=== PATIENT | female | born 1980 | race Caucasian/White ===

== ENCOUNTER 2017-04-08 16:34 | Inpatient (IN) | payer OTHER ==
[~2017-04-08] VITALS: Ht 170.1 cm; Wt 59.2 kg
--- NOTE | 2017-04-08 17:45 | NUR ---
36 year old FEMALE admitted to room # 501 for stabilization. 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 Compliant with admission procedure. Patient complains of stomach cramps, diaphoresis, chills, and nausea. See assessment forms for additional information about patient status.
[2017-04-08 18:02] VITALS: BP 148/98
[2017-04-08 18:32] LABS: BASO % 0.2 % (0.0-1.0); EOS # 0.1 10*3/uL (0.0-0.4); EOS % 1.2 % (1.0-4.0); HEMATOCRIT 39.7 % (37.0-47.0); HEMOGLOBIN 13.3 g/dl (12.0-16.0); LYMPH # 3.1 10*3/uL (1.3-4.4); LYMPH % 35.9 % (27.0-41.0); MEAN CORPUSCULAR HGB 29.5 pg (27.0-31.0); MEAN CORPUSCULAR HGB CONC 33.5 g/dl (33.0-37.0); MONO # 0.7 10*3/uL (0.1-1.0); MONO % 7.6 % (3.0-9.0); NEUT # 4.7 10*3/uL (2.3-7.9); NEUT % 54.9 % (47.0-73.0); PLATELET COUNT AUTOMATED 198 10*3/uL (130-400); RED BLOOD COUNT 4.51 10*6/uL (4.10-5.10); RED CELL DISTRI WIDTH 13.2 % (0-14.5); WHITE BLOOD COUNT 8.6 10*3/uL (4.8-10.8)
[2017-04-08] MEDS ORDERED: LEXAPRO20 MG PO (18:42)
[2017-04-08] MEDS ORDERED: XANAX0.25 MG PO (18:43)
[2017-04-08] MEDS ORDERED: WELLBUTRIN XL150 MG PO (18:43)
[2017-04-08 18:46] LABS: ALBUMIN 3.6 gm/dl (3.1-4.5); ALKALINE PHOSPHATASE 65 U/L (45-117); BUN 9 mg/dl (7-24); CHLORIDE 103 mmol/L (98-107); CREATININE 1.05 mg/dL (0.55-1.02); POTASSIUM 3.5 mmol/L (3.5-5.1); SGOT/AST 23 IU/L (3-35); SGPT/ALT 41 U/L (12-78); SODIUM 139 mmol/L (136-145); TOTAL PROTEIN 7.7 gm/dL (6.4-8.2)
[2017-04-08 18:47] LABS: ETHYL ALCOHOL < 3.0 mg/dl (<3)
[2017-04-08 19:02] LABS: BILIRUBIN NEGATIVE (NEGATIVE); BLOOD NEGATIVE (NEGATIVE); CLARITY CLEAR (CLEAR); COLOR YELLOW (YELLOW); GLUCOSE NEGATIVE (NEGATIVE); KETONE NEGATIVE (NEGATIVE); LEUKO ESTERASE 1+ (NEGATIVE); NITRITE NEGATIVE (NEGATIVE); SPECIFIC GRAVITY <= 1.005 (1.005-1.030); UROBILINOGEN 0.2 E.U./dl (0.2-1.0)
--- NOTE | 2017-04-08 19:07 | NUR ---
PT MEDICATED WITH ROBAXIN AND VISTARIL PER PRN ORDER FOR ACHES & ANXIETY. WILL MONITOR
[2017-04-08 19:14] LABS: URINE AMPHETAMINES < 1000 (1000ng/ml); URINE BARBITURATES < 200 (200ng/ml); URINE BENZODIAZEPINES > 200 (200ng/ml); URINE CANNABINOIDS (THC) < 50 (50ng/ml); URINE COCAINE > 300 (300ng/ml); URINE METHADONE < 300 (300ng/ml); URINE OPIATES > 300 (300ng/ml)
[2017-04-08 19:16] LABS: URINE PHENCYCLIDINE < 25 (25ng/ml)
[2017-04-08 19:37] LABS: BACTERIA TRACE
[2017-04-08 20:00] VITALS: BP 148/89
--- NOTE | 2017-04-08 20:00 | NUR ---
NO URINE/SERUM DRUG ORDERED OR OBTAINED ON PT. HX OF HYSTERECTOMY. MEDS GIVEN BY PREVIOUS SHIFT
--- NOTE | 2017-04-08 21:08 | NUR ---
Patient displaying withdrawal symptoms, including: irritability, anxiousness, restlessness and agitation. PRN medications provided, SEE EMAR. Will continue to monitor medication effectiveness.
--- NOTE | 2017-04-08 23:00 | NUR ---
Patient resting. Responding to scheduled medications with fewer complaints of pain and anxiety.
[2017-04-09] VITALS: BP 100/59; BP 110/62
--- NOTE | 2017-04-09 00:48 | NUR ---
Patient displaying withdrawal symptoms, including: irritability, anxiousness, restlessness and agitation. PRN medications provided, SEE EMAR. Will continue to monitor medication effectiveness.
--- NOTE | 2017-04-09 03:00 | NUR ---
Patient resting. Responding to scheduled medications with fewer complaints of pain and anxiety.
[2017-04-09 04:00] VITALS: BP 108/64
--- NOTE | 2017-04-09 04:50 | NUR ---
Patient displaying withdrawal SIGNS/symptoms, including: irritability, anxiousness, restlessness, agitation, AND CRAVINGS. Scheduled medications provided, SEE EMAR. Will continue to monitor medication effectiveness.
--- NOTE | 2017-04-09 06:00 | NUR ---
Patient resting. Responding to scheduled medications with fewer complaints of pain and anxiety.
[2017-04-09 08:00] VITALS: BP 109/70; BP 118/70
--- NOTE | 2017-04-09 09:11 | NUR ---
PATIENT MEDICATED WITH VISTARIL & ROBAXIN AT THIS TIME FOR COMPLAINTS OF AGITATION & MUSCLE ACHES. WILL MONITOR FOR EFEFCTIVENESS.
--- NOTE | 2017-04-09 10:15 | NUR ---
PATIENT STATES THAT VISTARIL & ROBAXIN WERE EFEFCTIVE AT THIS TIME.
--- NOTE | 2017-04-09 10:52 | NUR ---
PATIENT MEDICATED WITH BENTYL AND ZOFRAN PER PRN ORDER FOR COMPLAINTS OF NAUSEA AND STOMACH CRAMPS. WILL MONITOR.
[2017-04-09 12:00] VITALS: BP 128/85
--- NOTE | 2017-04-09 12:30 | NUR ---
PER PATIENT, MEDICATION HAS BEEN EFFECTIVE.
--- NOTE | 2017-04-09 15:28 | NUR ---
PATIENT COMPLAINING OF AGITATION & MUSCLE ACHES AT THIS TIME. MEDICATED WITH VISTARIL AND ROBAXIN PER ORDER. WILL MONITOR
[2017-04-09 16:00] VITALS: BP 118/88
--- NOTE | 2017-04-09 16:39 | NUR ---
D/C PLANNING: PATIENT WANTS TO GO TO THE [facility] FOR HER AFTERCARE PLAN THEN GO TO THE [facility] FOR SOBER LIVING. PATIENT EXPRESSED INTEREST IN THE VIVITROL SHOT. PATIENT AGREES AND UNDERSTANDS HER AFTERCARE PLAN. ELINA SERRATO B.A. MECHANICAL DRAFTER
--- NOTE | 2017-04-09 17:09 | NUR ---
MEDICATION APPEARS TO HAVE BEEN EFFECTIVE; PT ASLEEP, AT THIS TIME
[2017-04-09 20:00] VITALS: BP 133/77
--- NOTE | 2017-04-09 20:00 | NUR ---
Patient displaying withdrawal symptoms, including: irritability, anxiousness, restlessness and agitation. Scheduled/PRN medications provided, SEE EMAR. Will continue to monitor medication effectiveness.
--- NOTE | 2017-04-09 21:30 | NUR ---
Patient resting. Responding to scheduled medications with fewer complaints of pain and anxiety.
[2017-04-10] VITALS: BP 122/68
--- NOTE | 2017-04-10 00:08 | NUR ---
Patient displaying withdrawal symptoms, including: irritability, anxiousness, restlessness and agitation. Scheduled/PRN medications provided, SEE EMAR. Will continue to monitor medication effectiveness
--- NOTE | 2017-04-10 01:15 | NUR ---
Patient resting. Responding to scheduled medications with fewer complaints of pain and anxiety.
--- NOTE | 2017-04-10 03:00 | NUR ---
Patient resting. Responding to scheduled medications with fewer complaints of pain and anxiety.
--- NOTE | 2017-04-10 04:00 | NUR ---
Patient displaying withdrawal symptoms, including: irritability, anxiousness, restlessness and agitation. Scheduled medications provided, SEE EMAR. Will continue to monitor medication effectiveness.
--- NOTE | 2017-04-10 06:00 | NUR ---
Patient resting. Responding to scheduled medications with fewer complaints of pain and anxiety.
[2017-04-10 08:00] VITALS: BP 123/73
--- NOTE | 2017-04-10 08:02 | NUR ---
ROBAXIN 750 MG AND ZOFRZAN 4 MG GIVEN FOR C/O NAUSEA AND ACHY LEGS. Patient resting. Responding to scheduled medications with fewer complaints of pain and anxiety. SPOKE TO PT REGARDING D/C PLAN FOR RERHAB. PT STATED SHE PLANS ON THE [facility] IN [place] AND [facility] FOR OUTPATIENT [place] UNTIL A FACILITY IN [place] HAS A BED AVAILABLE.
--- NOTE | 2017-04-10 09:52 | NUR ---
VISTARIL 50MG AND MOTRIN 600 MG GIVEN FOR C/O ANXIETY AND BACK PAIN,02/03.
[2017-04-10 12:00] VITALS: BP 122/62
--- NOTE | 2017-04-10 12:46 | NUR ---
SPOKE TO PT AND AND THEY ARE OK WITH DR AZAR'S PLAN OF CARE FOR BRONCH.NOTIFIED DR AZAR, AWAITING ORDERS.
--- NOTE | 2017-04-10 14:49 | NUR ---
MEDICATED PT WITH ATIVAN 1MG FOR ANXIETY PER SENIOR DIRECTOR MARKETING ORDER.
[2017-04-10 16:00] VITALS: BP 104/69
[2017-04-10 20:00] VITALS: BP 124/71
--- NOTE | 2017-04-10 20:35 | NUR ---
MEDICATED WITH ROBAXIN FOR MUSCLE ACHES & BENTYL FOR ABDOMINAL DISCOMFORT.
--- NOTE | 2017-04-10 22:00 | NUR ---
MEDICATED WITH TRAZODONE FOR SLEEP & XANAX FOR ANXIETY.
--- NOTE | 2017-04-10 23:00 | NUR ---
STATES MEDICATIONS EFFECTIVE.
--- NOTE | 2017-04-10 23:24 | NUR ---
MEDICATED WITH ATIVAN FOR C/O ANXIETY.
[2017-04-11] VITALS: BP 119/73
--- NOTE | 2017-04-11 02:00 | NUR ---
RESTING IN BED WITH EYES CLOSED; ATIVAN APPARENTLY EFFECTIVE.
--- NOTE | 2017-04-11 05:24 | NUR ---
MEDICATED WITH ROBAXIN FOR MUSCLES ACHES, BENTYL FOR STOMACH DISCOMFORT & REQUIP FOR RESTLESSNESS.
[2017-04-11 06:41] LABS: BASO % 0.5 % (0.0-1.0); EOS # 0.2 10*3/uL (0.0-0.4); EOS % 2.8 % (1.0-4.0); HEMATOCRIT 38.6 % (37.0-47.0); HEMOGLOBIN 12.6 g/dl (12.0-16.0); LYMPH # 3.5 10*3/uL (1.3-4.4); LYMPH % 54.5 % (27.0-41.0); MEAN CELL VOLUME 90.2 fl (81.0-99.0); MEAN CORPUSCULAR HGB 29.4 pg (27.0-31.0); MEAN CORPUSCULAR HGB CONC 32.6 g/dl (33.0-37.0); MEAN PLATELET VOLUME 10.5 fl (9.6-12.3); MONO # 0.7 10*3/uL (0.1-1.0); NEUT # 2.1 10*3/uL (2.3-7.9); NEUT % 31.9 % (47.0-73.0); PLATELET COUNT AUTOMATED 194 10*3/uL (130-400); RED BLOOD COUNT 4.28 10*6/uL (4.10-5.10); WHITE BLOOD COUNT 6.5 10*3/uL (4.8-10.8)
[2017-04-11 07:08] LABS: CREATININE 1.05 mg/dL (0.55-1.02)
[2017-04-11 08:00] VITALS: BP 106/66
--- NOTE | 2017-04-11 10:57 | NUR ---
D/C PLAN: PATIENT WILL BE DISCHARGE ON FRIDAY. PATIENT PLANS ON GOING TO THE [facility] IN [place], [place] THEN ON TO INPATIENT TREATMENT. PATIENT UNDERSTAND AND AGREES TO AFTERCARE PLAN. EILNA SERRATO B.A. LEDGE MAN
[2017-04-11 12:00] VITALS: BP 116/68
[2017-04-11 16:00] VITALS: BP 119/84
[2017-04-11 20:00] VITALS: BP 124/81
--- NOTE | 2017-04-11 21:37 | NUR ---
MEDICATED WITH TRAZODONE FOR SLEEP.
--- NOTE | 2017-04-11 22:49 | NUR ---
MEDICATED WITH TRAZODONE FOR C/O SLEEPLESSNESS PER PT'S REQUEST.
[2017-04-12] VITALS: BP 106/71
--- NOTE | 2017-04-12 00:40 | NUR ---
MEDICATED WITH ROBAXIN FOR MUSCLE ACHES; BENTYL FOR STOMACH CRAMPS & VISTARIL FOR ANXIETY.
--- NOTE | 2017-04-12 07:00 | NUR ---
TOOK PATIENT PRN MEDICATIONS BUT PT. WAS SLEEPING.
[2017-04-12 08:00] VITALS: BP 108/71
[2017-04-12 12:00] VITALS: BP 92/79
[2017-04-12 16:00] VITALS: BP 118/69
--- NOTE | 2017-04-12 16:24 | NUR ---
MEDICATED PT PER PT'S REQUEST WITH SENEKOT FOR PT'S C/O CONSTIPATION.
--- NOTE | 2017-04-12 16:25 | NUR ---
PT ALSO GIVEN 2 PRUNE JUICES R/T PT'S C/O CONSTIPATION.
--- NOTE | 2017-04-12 18:11 | NUR ---
MEDICATED PT PER PRN ORDER WITH ROBAXIN FOR PT'S C/O MUSCLE ACHES AND VISTARIL FOR PT'S C/O ANXIETY. NO BM YET FROM EARLIER SENEKOT AND PRUNE JUICE.
--- NOTE | 2017-04-12 18:17 | NUR ---
DR GARCIA NOTIFIED OF PT'S CONCERN R/T SWOLLEN LYMPH NODES IN AXILLA. LUMPS WERE NOTED IN HER AXILLA.
--- NOTE | 2017-04-12 19:03 | NUR ---
PT STATES RELIEF OF SYMPTOMS WITH EARLIER PRN MEDS.
--- NOTE | 2017-04-12 19:54 | NUR ---
MEDICATED WITH PRN XANAX,MOTRIN,REQUIP,BENTYL PER ORDERS AND REQUEST.
[2017-04-12 20:00] VITALS: BP 105/74
--- NOTE | 2017-04-12 21:13 | NUR ---
MEDICATED WITH PRN ATIVAN AND TRAZADONE PER ORDERS AND REQUEST. EARLIER PRN PILLS HELPED SOME. PATIENT STILL SHAKY AND CANNOT SLEEP.
--- NOTE | 2017-04-12 23:13 | NUR ---
ATIVAN AND TRAZADONE HELPED.
[2017-04-13] VITALS: BP 110/73
--- NOTE | 2017-04-13 00:02 | NUR ---
PATIENT MEDICATED WITH PRN TRAZADONE FOR C/O INSOMNIA. WILL MONITOR
--- NOTE | 2017-04-13 00:10 | NUR ---
PATIENT MEDICATED WITH PRN TYLENOL FOR A HEADACHE RATED 7/10 ON A 0/10 PAIN SCALE
--- NOTE | 2017-04-13 01:10 | NUR ---
PATIENT RESTING WITH EYES CLOSED. MEDICATION SEEMS EFFECTIVE
--- NOTE | 2017-04-13 03:33 | NUR ---
PATIENT RESTING IN BED WITH EYES CLOSED. NO S/S OF DISTRESS. RESPS EASY AND REGULAR. BED IN LOWEST POSITION, CALL LIGHT IN REACH
--- NOTE | 2017-04-13 07:45 | NUR ---
PT. AWAKE, ALERT AND ORIENTED UPON ENTERING ROOM. PT STATED SHE "FELT LUMPS IN BOTH AXILLAE YESTERDAY THAT ARE SMALLER TODAY THAN THEY WERE." NO LUMP PALPATED IN RT. AXILLAE, SMALL LUMP PALPATED IN LEFT AXILLAE. LUMP PALPATED ON RAN OVER TOP OF TRACK LISA SCAR. SEE DOCUMENTATION FOR ASSESSMENT DETAILS. CALL LIGHT WITHIN REACH, BED IN LOWEST POSITION, WHEELS LOCKED.
--- NOTE | 2017-04-13 07:49 | NUR ---
Patient reports symptoms of withdrawal. Patient given scheduled/PRN medication to control withdrawal symptoms. Close observation will be maintained.
[2017-04-13 08:00] VITALS: BP 97/53
--- NOTE | 2017-04-13 08:18 | NUR ---
SENOKET GIVEN AT THIS TIME FOR PT. C/O CONSTIPATION. LAST REPORTED BM 04/08/17.
--- NOTE | 2017-04-13 08:19 | NUR ---
Patient resting. Responding to scheduled medications with fewer complaints of pain and anxiety.
[2017-04-13 12:00] VITALS: BP 102/56
--- NOTE | 2017-04-13 13:53 | NUR ---
PT. REQUESTED ATIVAN FOR "ANXIOUS FEELING." WILL RE-ASSESS FOR EFFECTIVENESS.
--- NOTE | 2017-04-13 14:23 | NUR ---
PT. STATED RELIEF OF "ANXIOUS FEELING."
[2017-04-13 16:00] VITALS: BP 112/66
--- NOTE | 2017-04-13 18:34 | NUR ---
Patient reports symptoms of withdrawal. Patient given scheduled/PRN medication to control withdrawal symptoms. Close observation will be maintained.
--- NOTE | 2017-04-13 19:30 | NUR ---
PT C/O ANXIETY REQUESTING XANAX, ADMISNISTERED XANAX 0.25MG PO PRN PER ORDERS, WILL MONITOR EFFECTS, PT AT THIS TIME ASKS WHAT PRNS ARE AVAILABLE FOR HER TO TAKE
--- NOTE | 2017-04-13 19:30 | NUR ---
ASSUMED CARE OF PT AT THIS TIME, PT RESTING IN BED, PT HAS VISITOR AT THIS TIME
--- NOTE | 2017-04-13 19:35 | NUR ---
Patient resting. Responding to scheduled medications with fewer complaints of withdrawal symptoms.
[2017-04-13 20:00] VITALS: BP 127/77
--- NOTE | 2017-04-13 20:30 | NUR ---
PT RESTING IN BED AT THIS TIME, NO FURTHER COMPLAINTS, PRN MEDICATIONS EFFECTIVE
--- NOTE | 2017-04-13 23:46 | NUR ---
PT RESTING, CALL LIGHT WITH IN REACH
[2017-04-14] VITALS: BP 122/72
--- NOTE | 2017-04-14 03:57 | NUR ---
PT RESTING IN BED AT THIS TIME RESPS EASY AND NONLABORED CALL LIGHT WITH IN REACH
[2017-04-14 06:19] LABS: BASO % 0.4 % (0.0-1.0); EOS # 0.2 10*3/uL (0.0-0.4); EOS % 2.3 % (1.0-4.0); HEMATOCRIT 37.5 % (37.0-47.0); HEMOGLOBIN 12.2 g/dl (12.0-16.0); LYMPH # 3.3 10*3/uL (1.3-4.4); LYMPH % 42.9 % (27.0-41.0); MEAN CELL VOLUME 91.2 fl (81.0-99.0); MEAN CORPUSCULAR HGB 29.7 pg (27.0-31.0); MEAN CORPUSCULAR HGB CONC 32.5 g/dl (33.0-37.0); MEAN PLATELET VOLUME 9.9 fl (9.6-12.3); MONO # 0.7 10*3/uL (0.1-1.0); MONO % 8.9 % (3.0-9.0); NEUT # 3.5 10*3/uL (2.3-7.9); NEUT % 45.1 % (47.0-73.0); PLATELET COUNT AUTOMATED 195 10*3/uL (130-400); RED BLOOD COUNT 4.11 10*6/uL (4.10-5.10); RED CELL DISTRI WIDTH 13.2 % (0-14.5); WHITE BLOOD COUNT 7.7 10*3/uL (4.8-10.8)
--- NOTE | 2017-04-14 06:30 | NUR ---
PT HAD MULTIPLE COMPLIANTS AND REQUESTED PRN MEDICATIONS, ADMINISTERED ATIVAN, ROBAXIN, AND ZOFRAN WILL MONITOR EFFECTS
[2017-04-14 06:32] LABS: CREATININE 1.07 mg/dL (0.55-1.02)
[2017-04-14 08:00] VITALS: BP 110/78
[2017-04-14] MEDS ORDERED: ZOFRAN 4 MG ED2 TAB PO (10:29)
[2017-04-14] MEDS ORDERED: ATARAX,VISTARIL50 MG PO (10:29)
--- NOTE | 2017-04-14 11:41 | NUR ---
Discharge instructions reviewed with patient/family. Patient receptive and verbalizes understanding. Follow-up care arranged. Written instructions given to patient/family. Patient waiting for ride. KATHLEEN DUMONT
== END 2017-04-14 11:41 | DRG 897 ==
LOC: 5E 16:34
PROVIDERS: Family Medicine; ADMIT Internal Medicine
DX: F11.23 Opioid dependence with withdrawal (principal); F14.10 Cocaine abuse, uncomplicated; M79.1 Myalgia; F41.9 Anxiety disorder, unspecified; F17.200 Nicotine dependence, unspecified, uncomplicated; B19.20 Unspecified viral hepatitis C without hepatic coma; Z90.710 Acquired absence of both cervix and uterus; Z71.6 Tobacco abuse counseling; Z85.41 Personal history of malignant neoplasm of cervix uteri; Z79.899 Other long term (current) drug therapy

== ENCOUNTER 2019-05-10 16:47 | Inpatient (IN) | payer OTHER ==
[~2019-05-10] VITALS: Ht 167.6 cm; Wt 65.3 kg
--- NOTE | ~2019-05-10 | EKG ---
[place], [place] ELECTROCARDIOGRAM REPORT NAME: DONNA ORTIZ UNIT #: [id number] ROOM: 405 DOCTOR: TORITO DRAFT REPORT BIRTHDATE: [birth year] [facility] Test Date: 2019-05-11 Test Time: 10:30:24 Pat Name: DONNA ORTIZ Department: Room: 405 2 Gender: F Mobile Patrol Officer: : 1980 Requested By: ISABELA FLORES Order Number: [id number] Reading MD: Christiano Parker MD Measurements Intervals [place] Rate: 86 P: 68 WY: 135 QRS: 87 QRSD: 99 T: 71 QT: 381 QTc: 456 Interpretive Statements Sinus rhythm Electronically Signed On 05-11-2019 8:11:32 PDT by Christiano Parker MD CM:EKGRPT:ELECTROCARDIOGRAM REPORT [id number] ISABELA GUARTE DRAFT REPORT ISABELA FLORES
[~2019-05-10 16:47] MED LIST: ATARAX,VISTARIL50 MG PO; LEXAPRO20 MG PO; WELLBUTRIN XL150 MG PO; XANAX0.25 MG PO; ZOFRAN 4 MG ED2 TAB PO
--- NOTE | 2019-05-10 17:17 | NUR ---
PATIENT MEETS [facility]. CINA=20. PATIENT WANTS TO FOLOW UP WITH OUTPATIENT TREATMENT IN HER AREA. [place] STAFF WILL PROVIDE PATIENT WITH REFERRAL OPTIONS CLOSE TO HER HOME. ELINA SERRATO B.A. ANALOG DEVICE DESIGNER
[2019-05-10 17:30] VITALS: BP 164/97
--- NOTE | 2019-05-10 17:30 | NUR ---
38 year old FEMALE admitted to room # 405-2 for stabilization. Reports an addiction to OPIATES last used WITHIN 24 HRS hours prior to admission. Compliant with admission procedure. Patient denies any anxiety, but is unable to sit still, taps toes to floor continuously, looks about room, unable to focus eyes on nurse during interview. See assessment forms for additional information about patient status.
--- NOTE | 2019-05-10 17:32 | NUR ---
WOUND CARE PHOTO TAKEN PER PROTOCOL.NOTIFIED RESIDENT NEED FOR WOUNDCARE ORDERS.
[2019-05-10 18:31] LABS: BILIRUBIN 2+ (NEGATIVE); BLOOD 3+ (NEGATIVE); CLARITY CLEAR (CLEAR); COLOR YELLOW (YELLOW); GLUCOSE NEGATIVE (NEGATIVE); KETONE 1+ (NEGATIVE); LEUKO ESTERASE 1+ (NEGATIVE); NITRITE NEGATIVE (NEGATIVE); UROBILINOGEN 0.2 E.U./dl (0.2-1.0)
[2019-05-10 18:48] LABS: BASO # 0.1 10*3/uL (0.0-0.1); BASO % 0.4 % (0.0-1.0); EOS # 0.2 10*3/uL (0.0-0.4); EOS % 1.3 % (1.0-4.0); HEMOGLOBIN 12.9 g/dl (12.0-16.0); LYMPH # 3.1 10*3/uL (1.3-4.4); LYMPH % 25.2 % (27.0-41.0); MEAN CELL VOLUME 86.7 fl (81.0-99.0); MEAN CORPUSCULAR HGB 30.2 pg (27.0-31.0); MEAN CORPUSCULAR HGB CONC 34.9 g/dl (33.0-37.0); MEAN PLATELET VOLUME 8.9 fl (9.6-12.3); MONO # 1.4 10*3/uL (0.1-1.0); MONO % 11.9 % (3.0-9.0); NEUT # 7.4 10*3/uL (2.3-7.9); NEUT % 60.8 % (47.0-73.0); PLATELET COUNT AUTOMATED 386 10*3/uL (130-400); RED BLOOD COUNT 4.27 10*6/uL (4.10-5.10); RED CELL DISTRI WIDTH 12.4 % (0-14.5); WHITE BLOOD COUNT 12.2 10*3/uL (4.8-10.8)
[2019-05-10 18:49] LABS: HYALINE CAST 0-2
[2019-05-10 18:50] LABS: BACTERIA 1+
[2019-05-10 18:59] LABS: URINE AMPHETAMINES > 1000 (1000ng/ml); URINE BARBITURATES < 200 (200ng/ml); URINE BENZODIAZEPINES > 200 (200ng/ml); URINE CANNABINOIDS (THC) > 50 (50ng/ml); URINE COCAINE > 300 (300ng/ml); URINE METHADONE < 300 (300ng/ml)
[2019-05-10 19:02] LABS: URINE OPIATES < 300 (300ng/ml)
[2019-05-10 19:06] LABS: URINE PHENCYCLIDINE < 25 (25ng/ml)
[2019-05-10 19:16] LABS: ALBUMIN 3.5 gm/dl (3.1-4.5); ALKALINE PHOSPHATASE 83 U/L (45-117); BUN 11 mg/dl (7-24); CHLORIDE 90 mmol/L (98-107); POTASSIUM 2.8 mmol/L (3.5-5.1); SGOT/AST 85 IU/L (3-35); SGPT/ALT 68 U/L (12-78); SODIUM 129 mmol/L (136-145); TOTAL PROTEIN 8.1 gm/dL (6.4-8.2)
[2019-05-10 19:18] LABS: ETHYL ALCOHOL < 3.0 mg/dl (<3)
--- NOTE | 2019-05-10 19:35 | NUR ---
24 HOUR CHART CHECK COMPLETED
--- NOTE | 2019-05-10 19:45 | NUR ---
ATTEMPTED TO RECONCILE HOME MEDS VIA CLAIM HISTORY.PASSED TO PM SHIFT RN TO VERIFY WITH PT.
[2019-05-10 20:00] VITALS: BP 156/99
--- NOTE | 2019-05-10 20:10 | NUR ---
PATIENT ASSESSMENT COMPLETED AT THIS TIME. REVIEWED WITH PATIENT HER MEDICATIONS FROM HOME PHARMACY, SEE MED RECONCILIATION. PATIENT DENIES ANY CHEST PAIN OR SHORTNESS OF BREATH AT THIS TIME. PATIENT SCRATCHING AND PICKING AT SKIN, ROCKING BACK AND FORTH IN BED, MEDICATED FOR ANXIETY, STOMACH UPSET AT THIS TIME, PATIENT EDUCATED ON AFFECTS OF SCRATCHING AND PICKING AT SKIN AND CAUSING WOUNDS, INFECTION, PROVIDED PATIENT WITH GLOVES AND A DRY WASHCLOTH TO USE. CALL LIGHT WITHIN REACH, WILL CONTINUE TO MONITOR.
[2019-05-11] VITALS: BP 131/79
--- NOTE | 2019-05-11 04:15 | NUR ---
PATIENT RESTING IN BED IN A POSITION OF COMFORT, RESPIRATIONS EASY AND NON-LABORED. CALL LIGHT WITHIN REACH, WILL CONTINUE TO MONITOR.
--- NOTE | 2019-05-11 07:13 | NUR ---
DONNA ORTIZ [id number] Please refer to the physician's history and physical for past medical history, comorbid conditions, and allergies. Diagnosis: OPIATE WITHDRAWAL Saturnino Score: 22,LOW OR NO RISK WOUND DESCRIPTIONS: Wound Number: 1 Location of the wound: right forearm Thickness: Full Size: 0.6cm x 0.9cm x 0.1cm Tunneling: none Undermining: none Sinus Tract: none Presence of Exudate: Serosanguineous Amount: Light Color: Red, yellow Odor: None Periwound Skin Appearance: Normal Wound edges: approximated Pain (associated with wound): none at time of assessment How does patient state this happened? 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 pt stated she will care for this area when she is discharged and doesn't want any type of follow up in an outpatient center. Surface the patient is resting on: Isoflex SKIN PREVENTION RECOMMENDATION: 1. Pressure redistribution support surface as appropriate 2. Elevate heels 3. Remove boots/TEDS every shift and reapply 4. Head of bed 30 degrees as tolerated 5. Assess nutrition and hydration 6. Manage moisture 7. Avoid the use of containment devices while in bed 8. Use absorptive products on surfaces limit layers of linens on bed 9. Turn and reposition every 1-2 hours in bed and every 1 hour in chair as tolerated 10. Weight shifts every 15 minutes while up in chair 11. Offloading with pillows or device to keep heels elevated off bed 12. Monitor skin at least every shift 13. Inspect under medical devices twice a day WOUND TREATMENT RECOMMENDATIONS: Full thickness guidelines: Cleanse right forearm with nss and apply sureprep around the wound therahoney to wound bed and cover with bandaid every 2 days and prn.
[2019-05-11 08:00] VITALS: BP 128/70
--- NOTE | 2019-05-11 08:17 | NUR ---
REQUIP GIVEN FOR C/O RESTLESS LEGS, ROBAXIN GIVEN FOR C/O MUSCLE ACHES, VISTARIL GIVEN FOR C/O ANXIETY, ZOFRAN GVIEN FOR C/O NAUSEA. WILL MONITOR.
--- NOTE | 2019-05-11 09:30 | NUR ---
VISTARIL, REQUIP, ROBAXIN AND ZOFRAN EFFECTIVE PER PT.
--- NOTE | 2019-05-11 10:23 | NUR ---
Dr. Levy notified of wound care recommendations.
--- NOTE | 2019-05-11 15:40 | NUR ---
PATIENT IS WANTING INTENSIVE OUTPATIENT TREATMENT IN HER AREA. [place] STAFF SENT REFFERAL TO [facility]. [place] STAFF WILL FOLLOW UP WITH PATIENT. ELINA SERRATO B.A. TEACHER PHYSICALLY IMPAIRED
[2019-05-11 16:00] VITALS: BP 116/72
[2019-05-12] VITALS: BP 143/59
--- NOTE | 2019-05-12 02:00 | NUR ---
24 HR chart check completed.
[2019-05-12 06:29] LABS: BASO % 0.3 % (0.0-1.0); EOS # 0.1 10*3/uL (0.0-0.4); EOS % 2.4 % (1.0-4.0); HEMATOCRIT 34.7 % (37.0-47.0); HEMOGLOBIN 11.6 g/dl (12.0-16.0); LYMPH # 2.9 10*3/uL (1.3-4.4); LYMPH % 49.9 % (27.0-41.0); MEAN CELL VOLUME 89.4 fl (81.0-99.0); MEAN CORPUSCULAR HGB 29.9 pg (27.0-31.0); MEAN CORPUSCULAR HGB CONC 33.4 g/dl (33.0-37.0); MEAN PLATELET VOLUME 9.3 fl (9.6-12.3); MONO # 0.8 10*3/uL (0.1-1.0); MONO % 13.6 % (3.0-9.0); NEUT # 1.9 10*3/uL (2.3-7.9); NEUT % 33.5 % (47.0-73.0); PLATELET COUNT AUTOMATED 308 10*3/uL (130-400); RED BLOOD COUNT 3.88 10*6/uL (4.10-5.10); RED CELL DISTRI WIDTH 12.9 % (0-14.5); WHITE BLOOD COUNT 5.8 10*3/uL (4.8-10.8)
[2019-05-12 06:38] LABS: BUN 7 mg/dl (7-24); CREATININE 0.83 mg/dL (0.55-1.02); PHOSPHOROUS 2.5 mg/dL (2.5-4.9)
[2019-05-12 06:46] LABS: CHLORIDE 104 mmol/L (98-107); POTASSIUM 3.2 mmol/L (3.5-5.1); SODIUM 140 mmol/L (136-145)
[2019-05-12 08:00] VITALS: BP 135/83
--- NOTE | 2019-05-12 09:05 | NUR ---
PT REQUESTED AND GIVEN REQUIP, VISTARIL, AND ROBAXIN FOR MUSCLE ACHES, ANXIETY WILL MONITOR
--- NOTE | 2019-05-12 10:30 | NUR ---
MEDS HELPED/ WILL MONITOR
--- NOTE | 2019-05-12 15:35 | NUR ---
PATIENT IS WANTING TO FOLLOW UP WITH INTENSIVE OUTPATIENT TREATMENT CLOSE TO HER HOME. [place] STAFF SENT REFERRAL OFF TO [facility]. PATIENT HAS AN APPOINTMENT WITH THEM FOR AN ASSESSMENT ON April AT 9AM. ELINA SERRATO B.A. RESEARCH AGRICULTURAL ENGINEER
--- NOTE | 2019-05-12 15:47 | NUR ---
Nutritional Support Services Note: Wound noted to right forearm. 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 Appetite is good for meals, regular diet as ordered. Pt receives a night snack. Encouraged increase kcal and protein to promote healing. will follow as needed. No other nutrition intervention needed at this time. Trudi Cotter Rdn Ld
[2019-05-12 16:00] VITALS: BP 138/86
--- NOTE | 2019-05-12 19:32 | NUR ---
24 HOUR CHART CHECK COMPLETED
--- NOTE | 2019-05-12 20:10 | NUR ---
PATIENT ASSESSMENT COMPLETED AT THIS TIME,WITHOUT INCIDENT. PATIENT REQUESTED A SHOWER AT THIS TIME, NURSING ASSISSTANT NOTIFIED AND IS SETTING UP SHOWER ROOM FOR PATIENT. PATIENT DENIED ANY OTHER NEEDS AT THIS TIME. CALL LIGHT WITHIN REACH, WILL CONTINUE TO MONITOR.
[2019-05-13] VITALS: BP 116/62
--- NOTE | 2019-05-13 00:10 | NUR ---
PATIENT RESTING IN A POSITION OF COMFORT IN BED, AROUSES EASILY, DENIES ANY PAIN OR SHORTNESS OF BREATH AT THIS TIME, DENIES ANY NEEDS AT THIS TIME. CALL LIGHT WITHIN REACH WILL CONTINUE TO MONITOR.
[2019-05-13 08:00] VITALS: BP 134/72
--- NOTE | 2019-05-13 08:22 | NUR ---
PT RESTING IN BED. NO DISTRESS NOTED. WILL MONITOR
--- NOTE | 2019-05-13 10:30 | NUR ---
PRN MEDS HELPED WILL MONITOR
--- NOTE | 2019-05-13 10:52 | NUR ---
[place] STAFF SPOKE WITH PATIENT ABOUT AFTERCARE PLAN. [place] STAFF WILL RESCHEDULE HER APPOINTMENT WITH THE [facility]. [place] STAFF WILL FOLLOW UP WITH PATIENT. ELINA SERRATO B.A. JOB COACHING
--- NOTE | 2019-05-13 10:52 | NUR ---
PT MEDICATED WITH VISTARIL FOR ANXIETY AND ROBAXIN FOR MUSCLE ACHES AND REQUIP FOR RESTLESSNESS WILL MONITOR
[2019-05-13] MEDS ORDERED: SEPTDS PO (12:04)
--- NOTE | 2019-05-13 12:27 | NUR ---
PT REFUSED DC WOUND PHOTOS
--- NOTE | 2019-05-13 13:00 | NUR ---
PT TO STAY AND BE DC 'D TOMORROW PER DR HENLEY
--- NOTE | 2019-05-13 14:02 | NUR ---
PATIENT NEW APPOINTMENT AT THE [facility] IS FOR April AT 3PM. [place] STAFF WILL FOLLOW UP WITH PATIENT. ELINA SERRATO B.A. ROLL FORMER
[2019-05-13 16:00] VITALS: BP 138/84
[2019-05-13 20:00] VITALS: BP 147/89
--- NOTE | 2019-05-13 20:38 | NUR ---
ROBAXIN AND TRAZODONE GIVEN PER ORDER FOR COMPLAINTS OF INSOMNIA AND MUSCLE ACHES. WILL CONTINUE TO MONITOR AND REASSESS.
--- NOTE | 2019-05-13 21:45 | NUR ---
ROBAXIN AND TRAZADONE APPEAR EFFECTIVE, PT SLEEPING. CALL LIGHT IN REACH
[2019-05-14] VITALS: BP 135/81
[2019-05-14 08:00] VITALS: BP 147/83
[2019-05-14 09:31] LABS: BUN 6 mg/dl (7-24); CHLORIDE 106 mmol/L (98-107); CREATININE 0.86 mg/dL (0.55-1.02); POTASSIUM 3.6 mmol/L (3.5-5.1); SODIUM 140 mmol/L (136-145)
--- NOTE | 2019-05-14 11:16 | NUR ---
[place] STAFF REVIEWED PATIENT'S AFTERCARE PLAN. PATIENT AGREES AND UNDERSTANDS HER AFTERCARE PLAN. PATIENT REPORTS THAT SHE HAS FAMILY PICKING HER UP. ELINA SERRATO B.A. CANCER RESEARCHER
--- NOTE | 2019-05-14 15:05 | NUR ---
Discharge instructions reviewed with patient/family. Patient receptive and verbalizes understanding. Follow-up care arranged. Written instructions given to patient/family. SHER CORRALES
== END 2019-05-14 15:05 | disposition home or self-care (01) | DRG 773 ==
LOC: 4E 16:47
PROVIDERS: Internal Medicine; Student in an Organized Health Care Education/Training Program; ADMIT Family Medicine
DX: F11.23 Opioid dependence with withdrawal (principal); F41.9 Anxiety disorder, unspecified; G25.81 Restless legs syndrome; F14.10 Cocaine abuse, uncomplicated; F15.10 Other stimulant abuse, uncomplicated; D72.829 Elevated white blood cell count, unspecified; D72.810 Lymphocytopenia; E87.1 Hypo-osmolality and hyponatremia; E87.6 Hypokalemia; N17.0 Acute kidney failure with tubular necrosis; N39.0 Urinary tract infection, site not specified; R31.9 Hematuria, unspecified; Z22.322 Carrier or suspected carrier of Methicillin resistant Staphylococcus aureus; Z86.19 Personal history of other infectious and parasitic diseases; Z90.710 Acquired absence of both cervix and uterus; Z98.891 History of uterine scar from previous surgery; Z85.41 Personal history of malignant neoplasm of cervix uteri; Z79.899 Other long term (current) drug therapy; Z72.0 Tobacco use

== ENCOUNTER 2022-12-16 10:03 | Inpatient (IN) | payer OTHER ==
[~2022-12-16] VITALS: Ht 170.1 cm; Wt 68.1 kg
[~2022-12-16 10:03] MED LIST changes: +SEPTDS PO
[2022-12-16 10:23] VITALS: BP 129/91
[2022-12-16 11:12] LABS: BASO % 0.4 % (0.0-1.0); EOS # 0.1 10*3/uL (0.0-0.4); EOS % 1.6 % (1.0-4.0); HEMATOCRIT 40.1 % (37.0-47.0); LYMPH # 2.1 10*3/uL (1.3-4.4); LYMPH % 43.3 % (27.0-41.0); MEAN CELL VOLUME 87.4 fl (81.0-99.0); MEAN CORPUSCULAR HGB 29.6 pg (27.0-31.0); MEAN CORPUSCULAR HGB CONC 33.9 g/dl (33.0-37.0); MEAN PLATELET VOLUME 9.5 fl (9.6-12.3); MONO # 0.4 10*3/uL (0.1-1.0); MONO % 8.9 % (3.0-9.0); NEUT # 2.2 10*3/uL (2.3-7.9); NEUT % 45.4 % (47.0-73.0); PLATELET COUNT AUTOMATED 181 10*3/uL (130-400); RED BLOOD COUNT 4.59 10*6/uL (4.10-5.10); RED CELL DISTRI WIDTH 12.5 % (0-14.5); WHITE BLOOD COUNT 4.9 10*3/uL (4.8-10.8)
[2022-12-16 11:15] LABS: BILIRUBIN Negative (Negative); BLOOD Negative (Negative); CLARITY Clear (Clear); COLOR Yellow (Yellow); GLUCOSE Negative (Negative); KETONE Negative (Negative); LEUKO ESTERASE Trace (Negative); NITRITE Negative (Negative); UROBILINOGEN 0.2 E.U./dl (0.0-1.0)
[2022-12-16 11:20] LABS: URINE AMPHETAMINES Negative (1000ng/ml); URINE BARBITURATES Negative (200ng/ml); URINE BENZODIAZEPINES Negative (200ng/ml); URINE CANNABINOIDS (THC) Negative (50ng/ml); URINE COCAINE Negative (300ng/ml); URINE METHADONE Negative (300ng/ml); URINE OPIATES Negative (300ng/ml); URINE PHENCYCLIDINE Negative (25ng/ml)
[2022-12-16 11:33] LABS: BACTERIA TRACE
[2022-12-16 11:38] LABS: ALKALINE PHOSPHATASE 65 U/L (46-116); BUN 9 mg/dl (9-23); CHLORIDE 102 mmol/L (98-107); POTASSIUM 3.9 mmol/L (3.4-5.1); SGPT/ALT 12 U/L (10-49); TOTAL PROTEIN 7.4 gm/dL (6.0-8.0)
[2022-12-16 11:47] LABS: BETA-HCG, QUANT < 3.0 mIU/mL (3-10); ETHYL ALCOHOL < 3.0 mg/dl (<3)
[2022-12-16 12:00] VITALS: BP 129/87
[2022-12-16 12:10] VITALS: BP 129/87; BP 129/89
[2022-12-16] MEDS ORDERED: HYDROXYZINE PAM25 M1 PO (13:34)
[2022-12-16] MEDS ORDERED: BUPRENORPHINE-1 EAC1 SL (13:34)
[2022-12-16] MEDS ORDERED: ELIQUIS5 M1 PO (13:36)
[2022-12-16] MEDS ORDERED: LISINOPRIL10 M1 PO (13:37)
[2022-12-16] MEDS ORDERED: MINIPRESS2 M1 PO (13:37)
[2022-12-16] MEDS ORDERED: TRAZODONE100 MG PO (13:38)
[2022-12-16 16:00] VITALS: BP 132/82
[2022-12-16 20:00] VITALS: BP 119/72
[2022-12-17] VITALS: BP 113/71
[2022-12-17 08:00] VITALS: BP 102/51
[2022-12-17 12:00] VITALS: BP 119/67
[2022-12-17 16:00] VITALS: BP 119/70
[2022-12-17 20:00] VITALS: BP 98/48
[2022-12-18] VITALS: BP 98/65
[2022-12-18 04:34] LABS: BASO % 0.5 % (0.0-1.0); EOS # 0.1 10*3/uL (0.0-0.4); EOS % 2.2 % (1.0-4.0); HEMATOCRIT 37.9 % (37.0-47.0); LYMPH # 3.2 10*3/uL (1.3-4.4); LYMPH % 57.5 % (27.0-41.0); MEAN CORPUSCULAR HGB 29.4 pg (27.0-31.0); MEAN CORPUSCULAR HGB CONC 32.2 g/dl (33.0-37.0); MEAN PLATELET VOLUME 9.6 fl (9.6-12.3); MONO # 0.4 10*3/uL (0.1-1.0); MONO % 7.4 % (3.0-9.0); NEUT # 1.8 10*3/uL (2.3-7.9); PLATELET COUNT AUTOMATED 171 10*3/uL (130-400); RED BLOOD COUNT 4.15 10*6/uL (4.10-5.10); RED CELL DISTRI WIDTH 12.9 % (0-14.5); WHITE BLOOD COUNT 5.5 10*3/uL (4.8-10.8)
[2022-12-18 04:51] LABS: MEAN CELL VOLUME 91.3 fl (81.0-99.0)
[2022-12-18 05:01] LABS: BUN 9 mg/dl (9-23); CHLORIDE 105 mmol/L (98-107); POTASSIUM 3.9 mmol/L (3.4-5.1)
[2022-12-18 08:00] VITALS: BP 95/72
[2022-12-18 12:00] VITALS: BP 142/85
[2022-12-18 16:00] VITALS: BP 138/87
[2022-12-18 20:00] VITALS: BP 167/95
[2022-12-19] VITALS: BP 148/86
[2022-12-19 07:38] LABS: BUN 11 mg/dl (9-23); CHLORIDE 102 mmol/L (98-107); POTASSIUM 3.9 mmol/L (3.4-5.1)
[2022-12-19 08:00] VITALS: BP 155/92
[2022-12-19 11:51] VITALS: BP 162/93
[2022-12-19 16:00] VITALS: BP 148/98
[2022-12-19 20:00] VITALS: BP 151/97
[2022-12-20] VITALS: BP 149/94
[2022-12-20 08:00] VITALS: BP 153/74
[2022-12-20] MEDS ORDERED: COMPAZINE5 M3 PO (10:48)
== END 2022-12-20 11:40 | disposition home or self-care (01) | DRG 773 ==
LOC: ED 10:03 → EDHOLD 11:10 → 5E 11:10 → EDHOLD 11:19 → 5E 12:06
PROVIDERS: Student in an Organized Health Care Education/Training Program; ADMIT Family Medicine; ATTEND Family Medicine
DX: F11.23 Opioid dependence with withdrawal (principal); F32.A Depression, unspecified; R82.71 Bacteriuria; B19.20 Unspecified viral hepatitis C without hepatic coma; F41.9 Anxiety disorder, unspecified; Z79.899 Other long term (current) drug therapy